=== PATIENT | male | born 1965 | race Caucasian/White ===

== ENCOUNTER 2021-01-31 08:12 | Emergency (ER) | payer OTHER, MEDICAID, SELFPAY ==
[2021-01-31] VITALS (14 sets, daily range): BP systolic 128–205; BP diastolic 79–118; PULSE 60–108; RESP 18–20; TEMP 37.1; O2SAT 94–98; BMI 29.7
--- NOTE | 2021-01-31 08:21 | ED_ITS ---
HPI - Back Pain/Injury General Chief Complaint: Back Pain/Injury Stated Complaint: Sciatic pain, loss of bladder control Time Seen by Provider: 01/31/21 08:20 History of Present Illness HPI Narrative: Patient is a 55-year-old male history of BPH and longstanding back problems with prior back surgeries. At she has had increasing back pain since July of 2020 however over the last 1 week he has had increasing pain down his right leg. He says whenever he sits down he has significant sharp shooting pain mostly in his right knee. Most comfortable position is for him to stand. He saw his primary care doctor last week he has been started on steroid and Diflucan neck he is unable to take gabapentin secondary to suicidal thoughts and angry behavior. He presents the emergency department today because as he was brushing his teeth he bent over spit in the sink and had sudden loss of urine. He said he had just had a bowel movement prior without any issue, but urinary incontinence with a significant surprise to him. He denies any fever or chills. No other issues. Related Data Previous Rx's Medication Instructions Recorded cyclobenzaprine 5 mg tablet 5 mg PO TID PRN #15 tab 01/31/21 hydrocodone 5 mg-acetaminophen 325 1 tab PO Q6H PRN #10 tab 01/31/21 mg tablet Review of Systems Review of Systems Narrative: GENERAL: Denies chills, fatigue, malaise, fever, sweats, travel HEENT: Denies sinus pain, ear pain, sore throat, difficulty swallowing, neck pain RESPIRATORY: Denies dyspnea, cough, wheezing, hemoptysis, sputum. CARDIOVASCULAR: Denies chest pain, palpitations, orthopnea, edema GASTROINTESTINAL: Denies nausea, vomiting, abdominal pain, diarrhea, constipation, melena. : See HPI MUSCULOSKELETAL: See HPI SKIN: No rash, no erythema, no pruritus NEUROLOGIC: Denies weakness, dizziness, headache, numbness, change in speech, confusion PSYCHIATRIC: No concerning psychosocial issues. 12 point review of systems is negative except for those stated above and HPI Patient History Medical History (Updated 01/31/21 @ 13:08 by Megan Villa DO) BPH (benign prostatic hyperplasia) Chronic back pain Social History Smoking Status: Never smoker Exam Initial Vital Signs Initial Vital Signs: Vital Signs Blood Pressure 205/118 H 01/31/21 08:18 GENERAL: Well-appearing, well-nourished and in no acute distress. CARDIOVASCULAR: peripheral pulses in tact, cap refill <2 sec RESPIRATORY: No respiratory distress, speaks in full sentences without difficulty BACK: No vertebral tenderness scars noted he is tender on his right paraspinal muscles and into his buttock EXTREMITIES: Normal range of motion, no clubbing or edema. Neurovascularly intact NEUROLOGICAL: Cranial nerves II through XII grossly intact. Normal gait and speech. Sensation in the lower extremities equal right leg is strong no decreased sensation in saddle area SKIN: Warm, dry, no petechiae, no rashes or lesions. Course Orders Ordered: Discontinued Medications Hydromorphone HCl (Hydromorphone 0.5 Mg Inj) 0.5 mg IV NOW ONE Stop: 01/31/21 08:31 Last Admin: 01/31/21 08:52 Dose: 0.5 mg Documented by: DAVE Hydromorphone HCl (Hydromorphone 0.5 Mg Inj) 0.5 mg IV NOW ONE Stop: 01/31/21 12:26 Last Admin: 01/31/21 12:44 Dose: 0.5 mg Documented by: BENOIT Vital Signs Vital signs: Vital Signs - 8 hr 01/31/21 11:26 01/31/21 11:30 01/31/21 12:00 Pulse Rate 69 71 64 Respiratory Rate Blood Pressure 133/79 146/95 H Pulse Oximetry 96 97 95 01/31/21 12:30 01/31/21 13:00 Pulse Rate 68 64 Respiratory Rate 20 Blood Pressure 156/99 H 156/96 H Pulse Oximetry 96 94 MDM - Back Pain/Injury Lab Data Result diagrams: 01/31/21 08:47 01/31/21 08:47 Labs: Lab Results 01/31/21 01/31/21 Range/Units 08:47 08:47 WBC 9.5 (4.5-11.0) X10^3/uL RBC 4.53 (4.5-5.9) X10^6/uL Hgb 14.1 (13.5-17.5) g/dL Hct 43.2 (41-53) % MCV 95.4 (80-100) fL MCH 31.2 (26-34) PG MCHC 32.7 (30-36) % RDW 12.6 (11.6-14.8) % Plt Count 255 (150-400) X10^3/uL Neut % (Auto) 73.0 (50-75) % Lymph % (Auto) 20.3 L (25-40) % [place] % (Auto) 5.8 (3-14) % Eos % (Auto) 0.5 L (2-4) % Baso % (Auto) 0.4 (0-2) % Neut # (Auto) 6900 (8890-6158) /uL Lymph # (Auto) 1900 (2634-1029) /uL [place] # (Auto) 500 (0-900) /uL Eos # (Auto) 100 (0-450) /uL Baso # (Auto) 0 (0-100) /uL Sodium 141 (137-145) mmol/L Potassium 4.3 (3.4-5.1) mmol/L Chloride 105 (98-107) mmol/L Carbon Dioxide 29 (22-32) mmol/L BUN 32 H (9-20) mg/dL Creatinine 1.03 (0.66-1.25) mg/dL Estimated GFR > 60.0 (>60) mL/min BUN/Creatinine Ratio 31.1 H (6-22) Glucose 101 H (70-100) mg/dL Calcium 9.7 (8.4-10.2) mg/dL Total Bilirubin 0.3 (0.2-1.3) mg/dL AST 30 (17-59) IU/L ALT 37 (<50) IU/L Alkaline Phosphatase 65 (38-126) U/L Total Protein 8.0 (6.3-8.2) g/dL Albumin 4.9 (3.5-5.0) g/dL Globulin 3.1 (1.7-4.1) g/dL Albumin/Globulin Ratio 1.6 (1.0-2.8) Urine Dip Bedside Urine Glucose Negative Bedside Urine Bilirubin - Negative Bedside Urine Ketone - Negative Urine Specific [place] 1.025 Bedside Urine Occult Blood - Negative Bedside Urine pH 6.0 Bedside Urine Protein - Negative Bedside Urine Urobilinogen +/- 1mg Bedside Urine Nitrite - Negative Bedside Urine Leukocytes - Negative Esterase Imaging Data MR lumbar: Radiologist's Impression: PROCEDURE:? MR LUMBAR SPINE WO/W CON ? INDICATIONS:? loss of urine worsening pain right leg riggs ? TECHNIQUE:? Noncontrast sagittal T1 spin echo and T2 fast spin echo, sagittal STIR, axial T1 and T2 fast spin echo through the lumbar spine.? In cases with scoliosis, additional coronal T2 fast spin echo may be performed.? After the administration of contrast, sagittal and axial T1 spin echo with fat saturation through the lumbar spine.? ? COMPARISON:? Outside Film, MR, MR LUMBAR SPINE WITH/WITHOUT CONTRAST, 09/21/2020, 12:26.? [facility], CR, XR LUMBAR SPINE WITH FLEXION EXTENSION 5 VIEWS, 10/13/2020, 13:03. ? FINDINGS:? Image quality:? There is magnetic susceptibility artifact from patient's surg ical hardware limiting evaluation.? ? Alignment and curvature:? There is mild retrolisthesis at L2-L3 and mild anterolisthesis at L3-L4.? Minimal anterolisthesis also present at L4-5.? Findings are similar to the prior studies. ? Marrow:? Marrow is of normal overall signal.? There is a small inferior endplate Schmorl's node in the L2 vertebral body with minimal depression of up to approximately 10% which is new compared to the prior MRI study.? There is mild associated marrow edema along its margins.? Small superior endplate Schmorl's node is redemonstrated in the L3 vertebral body.? A small superior endplate Schmorl's node is also redemonstrated anteriorly in the T12 vertebral body.? Elsewhere, no acute vertebral body compression fractures.? There are postsurgical changes redemonstrated status post posterior fusion at L4-5 with bilateral pedicle screws at these levels as well as an intervertebral spacer. ? Spinal cord:? Conus medullaris terminates at the L1 level.? Visualized spinal c ord demonstrates normal signal, without suspicious enhancement.? ? Paraspinous soft tissues:? No paravertebral masses or abnormal enhancement.? ? T12-L1:? Normal appearance.? ? L1-L2:? Normal appearance.? ? L2-L3:? Disc desiccation with moderate loss of disc height and a broad-based disc bulge.? There is mild facet arthropathy and ligamentum flavum hypertrophy.? Findings contribute to moderate spinal canal narrowing with a new small extruded fragment extending inferiorly in the right lateral recess along the posterior aspect of the L3 vertebral body.? There is associated apparent mass effect on the descending right L3 nerve root which appears asymmetrically enlarged compared to the left.? There is mild to moderate bilateral neural foraminal narrowing. ? L3-L4:? Disc desiccation with moderate loss of disc height and a broad-based disc bulge.? There is moderate facet arthropathy and mild ligamentum flavum hypertrophy.? The findings contribute to moderate spinal canal narrowing fluid in narrowing of the lateral recesses bilaterally.? There is moderate left and [id number] right neural foraminal narrowing.? Findings appear slightly increased compared to the prior study. ? L4-L5:? Postsurgical changes status post discectomy with placement of an intervertebral spacer as well as posterior laminectomy.? No spinal canal or neural foraminal narrowing. ? L5-S1:? Transitional anatomy with a rudimentary disc at this level. ? IMPRESSION:? ? 1. New small extruded disc fragment at L2-L3 extending inferiorly from the right lateral recess with apparent mass effect on the descending L3 nerve root. ? 2. Moderate spinal canal narrowing at L2-L3 and L3-L4. ? 3. Moderate left neural foraminal narrowing at L3-L4 with mild to moderate narrowing on the right and bilaterally at L2-L3. ? 4. Postsurgical changes redemonstrated status post posterior fusion at L4-5. ? 5. New small inferior endplate Schmorl's node within the L2 vertebral body with associated mild bone marrow edema. ? ? ? Dictated by: Jose Reid M.D. on 01/31/2021 at 11:24 ? ? Approved by: Jose Reid M.D. on 01/31/2021 at 11:52 MDM Narrative Medical decision making narrative: The patient has chronic ongoing back pain with worsening leg pain and now having urinary incontinence. Although does sound like he had some in her of abdominal pressure a causing the urinary incontinence. He has no decreased sensation or leg weakness. Nonetheless MRI is done and does show some moderate narrowing at L2-L3 and L3-L4, no cauda equina Findings discussed with Dr. Mnaning who recommends outpatient follow-up Patient is actually waiting to see Dr. fonseca another spine surgeon, but she needs another referral. Patient previously got cyclobenzaprine which did help him. He is given another prescription of this and narcotic medications. He is very hesitant about constipation due to his wifes addiction leading to her overdose and Discharge Plan Departure Patient Disposition: Home Clinical Impression: Back pain with right-sided sciatica Instructions: DI for Back Pain With Sciatica Activity Restrictions/Additional Instructions: *You have been diagnosed with acute on chronic back pain right-sided sciatica *What to do: At this time you may either follow up with Dr. fonseca for Dr. Manning. *Continue to take medications as directed [place] 1 tablet every 6 hours if needed for severe pain Flexeril 5-10 mg every 8 hours if the past *Follow up with your primary care provider in 2-3 days *Return to ER if you should have increasing leg weakness loss of urine or stool increasing pain any new, worsening or concerning symptoms CONTROLLED SUBSTANCE DISCHARGE (Narcotoic/benzodiazepine/Flexeril/Phenergan) 1. You have been prescribed narcotic medications, it does have acetaminophen/Tylenol/paracetamol in it, DO NOT TAKE MORE THAN 4,00mg in 24 hours of Tylenol. TRAMADOL DOES NOT CONTAIN TYLENOL 2. Please understand that we cannot provide further refills of narcotics, benzodiazepines or controlled substances through the ED and her pain management will need to be through your provider. 3. While on these medications you cannot drive or operate heavy machinery. 4. You cannot sign legal documents or perform any duties such as this. 5. As long as you're taking opiate pain medications he should also be taking a stool softener such as Colace, Dulcolax, MiraLAX or prune juice, to help avoid constipation. Prescriptions: New hydrocodone-acetaminophen 5-325 mg tablet 1 tab PO Q6H PRN (Reason: pain) Qty: 10 RF: 0 cyclobenzaprine 5 mg tablet 5 mg PO TID PRN (Reason: muscle spasm) Qty: 15 RF: 0 Referrals: Jarred Palacios MD [Physician] -
--- NOTE | 2021-01-31 08:30 | DI.MRI.S_ITS ---
PROCEDURE: MR LUMBAR SPINE WO/W CON INDICATIONS: loss of urine worsening pain right leg riggs TECHNIQUE: Noncontrast sagittal T1 spin echo and T2 fast spin echo, sagittal STIR, axial T1 and T2 fast spin echo through the lumbar spine. In cases with scoliosis, additional coronal T2 fast spin echo may be performed. After the administration of contrast, sagittal and axial T1 spin echo with fat saturation through the lumbar spine. COMPARISON: Outside Film, MR, MR LUMBAR SPINE WITH/WITHOUT CONTRAST, 09/21/2020, 12:26. [facility], CR, XR LUMBAR SPINE WITH FLEXION EXTENSION 5 VIEWS, 10/13/2020, 13:03. FINDINGS: Image quality: There is magnetic susceptibility artifact from patient's surgical hardware limiting evaluation. Alignment and curvature: There is mild retrolisthesis at L2-L3 and mild anterolisthesis at L3-L4. Minimal anterolisthesis also present at L4-5. Findings are similar to the prior studies. Marrow: Marrow is of normal overall signal. There is a small inferior endplate Schmorl's node in the L2 vertebral body with minimal depression of up to approximately 10% which is new compared to the prior MRI study. There is mild associated marrow edema along its margins. Small superior endplate Schmorl's node is redemonstrated in the L3 vertebral body. A small superior endplate Schmorl's node is also redemonstrated anteriorly in the T12 vertebral body. Elsewhere, no acute vertebral body compression fractures. There are postsurgical changes redemonstrated status post posterior fusion at L4-5 with bilateral pedicle screws at these levels as well as an intervertebral spacer. Spinal cord: Conus medullaris terminates at the L1 level. Visualized spinal cord demonstrates normal signal, without suspicious enhancement. Paraspinous soft tissues: No paravertebral masses or abnormal enhancement. T12-L1: Normal appearance. L1-L2: Normal appearance. L2-L3: Disc desiccation with moderate loss of disc height and a broad-based disc bulge. There is mild facet arthropathy and ligamentum flavum hypertrophy. Findings contribute to moderate spinal canal narrowing with a new small extruded fragment extending inferiorly in the right lateral recess along the posterior aspect of the L3 vertebral body. There is associated apparent mass effect on the descending right L3 nerve root which appears asymmetrically enlarged compared to the left. There is mild to moderate bilateral neural foraminal narrowing. L3-L4: Disc desiccation with moderate loss of disc height and a broad-based disc bulge. There is moderate facet arthropathy and mild ligamentum flavum hypertrophy. The findings contribute to moderate spinal canal narrowing fluid in narrowing of the lateral recesses bilaterally. There is moderate left and [id number] right neural foraminal narrowing. Findings appear slightly increased compared to the prior study. L4-L5: Postsurgical changes status post discectomy with placement of an intervertebral spacer as well as posterior laminectomy. No spinal canal or neural foraminal narrowing. L5-S1: Transitional anatomy with a rudimentary disc at this level. IMPRESSION: 1. New small extruded disc fragment at L2-L3 extending inferiorly from the right lateral recess with apparent mass effect on the descending L3 nerve root. 2. Moderate spinal canal narrowing at L2-L3 and L3-L4. 3. Moderate left neural foraminal narrowing at L3-L4 with mild to moderate narrowing on the right and bilaterally at L2-L3. 4. Postsurgical changes redemonstrated status post posterior fusion at L4-5. 5. New small inferior endplate Schmorl's node within the L2 vertebral body with associated mild bone marrow edema. Dictated by: Jose Reid M.D. on 01/31/2021 at 11:24 Approved by: Jose Reid M.D. on 01/31/2021 at 11:52
[2021-01-31] MEDS: HYDROMORPHONE 0.5 MG INJ IV ×2 (08:52→12:44)
[2021-01-31 09:37] LABS: Alanine Aminotransferase 37 IU/L (<50); Albumin 4.9 g/dL (3.5-5.0); Albumin Globulin Ratio 1.6 (1.0-2.8); Alkaline Phosphatase 65 U/L (38-126); Aspartate Aminotransferase 30 IU/L (17-59); BUN Creatinine Ratio 31.1 (6-22); Bilirubin Total 0.3 mg/dL (0.2-1.3); Blood Urea Nitrogen 32 mg/dL (9-20); Calcium 9.7 mg/dL (8.4-10.2); Carbon Dioxide 29 mmol/L (22-32); Chloride 105 mmol/L (98-107); Estimated Glomerular Filt Rate > 60.0 mL/min (>60); Globulin 3.1 g/dL (1.7-4.1); Glucose 101 mg/dL (70-100); HEMOLYSIS < 15 (0-50); Potassium 4.3 mmol/L (3.4-5.1); Sodium 141 mmol/L (137-145)
[2021-01-31 09:41] LABS: Add Manual Diff / Slide Review NO; Basophils Absolute Auto 0 /uL (0-100); Basophils Percent Auto 0.4 % (0-2); Eosinophils Absolute Auto 100 /uL (0-450); Eosinophils Percent Auto 0.5 % (2-4); Hematocrit 43.2 % (41-53); Hemoglobin 14.1 g/dL (13.5-17.5); Lymphocytes Absolute Auto 1900 /uL (1100-4500); Lymphocytes Percent Auto 20.3 % (25-40); Mean Corpuscular HGB Conc 32.7 % (30-36); Mean Corpuscular Hemoglobin 31.2 PG (26-34); Mean Corpuscular Volume 95.4 fL (80-100); Monocytes Absolute Auto 500 /uL (0-900); Monocytes Percent Auto 5.8 % (3-14); Neutrophils Absolute Auto 6900 /uL (1500-7000); Platelet Count 255 X10^3/uL (150-400); Red Blood Cell Count 4.53 X10^6/uL (4.5-5.9); Red Cell Distribution Width 12.6 % (11.6-14.8); White Blood Cell Count 9.5 X10^3/uL (4.5-11.0)
--- NOTE | 2021-01-31 11:39 | PC.NURSE ---
Rounded on this pt who is awake/alert, lying supine in bed. He states his pain is managed as long as he stays ling down; movement is still intense. No needs at this time, call light within reach.
== END 2021-01-31 13:20 | disposition home or self-care (01) ==
PROVIDERS: Emergency Provider Emergency Medicine
DX: M54.31 Sciatica, right side (principal); M25.561 Pain in right knee
CPT/HCPCS: 36415; 72158; 80053; 81003; 85025; 96374; 96376; 99284; J1170